=== PATIENT | female | born 1960 | race Caucasian/White ===

== ENCOUNTER 2019-02-12 14:50 | Emergency (ER) | payer OTHER, SELFPAY ==
[2019-02-12 15:15] VITALS: BP 136/81; PULSE 83; RESP 18; TEMP 36.4; O2SAT 97; BMI 37.1
[2019-02-12] MEDS: ONDANSETRON 4 MG/2 ML INJ IV ×2 (15:41→18:40)
[2019-02-12] MEDS: SODIUM CHLORIDE 0.9% 1,000 ML 1000 ML IV (15:41)
[2019-02-12 15:42] LABS: Add Manual Diff / Slide Review NO; Basophils Absolute Auto 0 /uL (0-100); Basophils Percent Auto 0.4 % (0-2); Eosinophils Absolute Auto 0 /uL (0-450); Eosinophils Percent Auto 0.3 % (2-4); Hematocrit 43.9 % (36-46); Hemoglobin 15.3 g/dL (12.0-16.0); Lymphocytes Absolute Auto 1700 /uL (1100-4500); Lymphocytes Percent Auto 15.4 % (25-40); Mean Corpuscular HGB Conc 34.8 % (30-36); Mean Corpuscular Hemoglobin 32.3 PG (26-34); Mean Corpuscular Volume 92.9 fL (80-100); Monocytes Absolute Auto 600 /uL (0-900); Monocytes Percent Auto 5.1 % (3-14); Neutrophils Absolute Auto 8600 /uL (1500-7000); Neutrophils Percent Auto 78.8 % (50-75); Platelet Count 168 X10^3/uL (150-400); Red Blood Cell Count 4.73 X10^6/uL (4.0-5.2); Red Cell Distribution Width 12.9 % (11.6-14.8); White Blood Cell Count 10.9 X10^3/uL (4.5-11.0)
--- NOTE | 2019-02-12 15:50 | ED_ITS ---
HPI - Abdominal Pain General Chief Complaint: Abdominal Pain Stated Complaint: lower abdominal area, nasea Time Seen by Provider: 02/12/19 15:36 Source: patient Mode of arrival: ambulatory Limitations: no limitations History of Present Illness HPI narrative: 58-year-old female here for evaluation of generalized abdominal pain and nausea and vomiting. She states that all her symptoms started this morning in been going on for less than 12 hours. Denied any fevers however generally does not feel very well. She states that it does cause abdominal pain when she urinates. Had 1 episode of diarrhea earlier today that was nonbloody and did not change her abdominal pain at all. She has had kidney stones in the past and states this feels somewhat like a kidney stone but not exactly. She also states she has had diverticulitis in the past but that was many years ago and does not remember if this is what it felt like. Has not tried anything for symptoms prior to arrival. Related Data Home Medications Medication Instructions Recorded Confirmed No Known Home Medications 02/12/19 02/12/19 Previous Rx's Medication Instructions Recorded ciprofloxacin HCl [Cipro] 500 mg PO BID 10 Days #20 tab 02/12/19 metronidazole [Flagyl] 500 mg PO TID 10 Days #30 tab 02/12/19 ondansetron 4 mg PO Q6H PRN #14 tab 02/12/19 Allergies Allergy/AdvReac Type Severity Reaction Status Date / Time No Known Drug Allergies Allergy Verified 02/12/19 15:15 Review of Systems Constitutional Denies fever(s) and Reports malaise Cardiovascular Denies chest pain and Denies dyspnea Respiratory Denies dyspnea Gastrointestinal Gastrointestinal: Reports abdominal pain, Reports diarrhea, Reports nausea and Denies vomiting Genitourinary Denies dysuria and Denies flank pain Musculoskeletal Denies myalgias and Denies arthralgias Integumentary/Breasts Denies lesions and Denies rash Neurologic Denies behavioral changes and Denies confusion Psychiatric Denies behavioral changes and Denies confusion Hematologic/Lymphatic Denies easy bleeding and Denies easy bruising [facility] Medical History History of diverticulitis (Acute) History of kidney stones (Acute) Social History Smoking Status: Never smoker Social History Smoking Status: Never smoker Exam Initial Vital Signs Initial Vital Signs: Vital Signs Temperature 97.6 F 02/12/19 15:15 Pulse Rate 83 02/12/19 15:15 Respiratory Rate 18 02/12/19 15:15 Blood Pressure 136/81 02/12/19 15:15 Pulse Oximetry 97 02/12/19 15:15 Const General: cooperative, healthy appearing, comfortable, well developed, well groomed and No acute distress Orientation: alert, awake and oriented x3 HENMT Head: normal to inspection and normocephalic Resp Effort & Inspection: normal respiratory effort Auscultation: clear to auscultation bilaterally Cardio Rate: regular rate Rhythm: regular rhythm GI Inspection: non-distended Palpation: No firm and tender (Generalized abdominal tenderness without rebound) Back/Spine/Pelvis Back: No CVA tenderness Skin Lesions: no lesions Rashes: no rashes Neuro General: alert, awake and oriented x3 Cognition: normal cognition Speech: speech normal Gait: normal gait Extrem General: normal to inspection, capillary refill normal and No edema Psych Appearance: grossly normal and well kempt Course Orders Ordered: ED Orders 02/12/19 15:35 Complete Blood Count AUTO DIFF Stat Comprehensive Metabolic Panel Stat Lipase Stat 02/12/19 16:17 Urine Culture Stat Urine Microscopic Stat 02/12/19 17:21 CT abdomen pelvis w con Stat Discontinued Medications Sodium Chloride (Normal Saline 0.9%) 1,000 mls @ 1,000 mls/hr IV BOLUS ONE Stop: 02/12/19 16:24 Last Infusion: 02/12/19 17:08 Dose: 0 mls/hr Admin: 02/12/19 15:41 Dose: 1,000 mls/hr Ondansetron HCl (Zofran) 4 mg IV NOW ONE Stop: 02/12/19 15:26 Last Admin: 02/12/19 15:41 Dose: 4 mg Vital Signs - 8 hr 02/12/19 15:15 02/12/19 17:51 Temperature 97.6 F Pulse Rate 83 83 Respiratory Rate 18 14 Blood Pressure 136/81 Blood Pressure [Right Arm] 151/78 H Pulse Oximetry 97 97 MDM - Abdominal Pain Lab Data Attestation: I reviewed the patient's lab results. Result diagrams: 02/12/19 15:35 02/12/19 15:35 Lab Results 02/12/19 02/12/19 02/12/19 Range/Units 15:35 15:35 15:35 WBC 10.9 (4.5-11.0) X10^3/uL RBC 4.73 (4.0-5.2) X10^6/uL Hgb 15.3 (12.0-16.0) g/dL Hct 43.9 (36-46) % MCV 92.9 (80-100) fL MCH 32.3 (26-34) PG MCHC 34.8 (30-36) % RDW 12.9 (11.6-14.8) % Plt Count 168 (150-400) X10^3/uL Neut % (Auto) 78.8 H (50-75) % Lymph % (Auto) 15.4 L (25-40) % Potter % (Auto) 5.1 (3-14) % Eos % (Auto) 0.3 L (2-4) % Baso % (Auto) 0.4 (0-2) % Neut # (Auto) 8600 H (9475-1713) /uL Lymph # (Auto) 1700 (7109-8956) /uL Potter # (Auto) 600 (0-900) /uL Eos # (Auto) 0 (0-450) /uL Baso # (Auto) 0 (0-100) /uL Sodium 139 (137-145) mmol/L Potassium 4.0 (3.4-5.1) mmol/L Chloride 103 (98-107) mmol/L Carbon Dioxide 24 (22-32) mmol/L BUN 15 (7-17) mg/dL Creatinine 0.70 (0.52-1.04) mg/dL Estimated GFR > 60.0 (>60) mL/min BUN/Creatinine Ratio 21.4 (6-22) Glucose 94 (80-110) mg/dL Calcium 9.6 (8.4-10.2) mg/dL Total Bilirubin 0.6 (0.2-1.3) mg/dL AST 49 H (14-36) IU/L ALT 90 H (9-52) IU/L Alkaline Phosphatase 65 (38-126) U/L Total Protein 7.7 (6.3-8.2) g/dL Albumin 4.5 (3.5-5.0) g/dL Globulin 3.2 (1.7-4.1) g/dL Albumin/Globulin Ratio 1.4 (1.0-2.8) Lipase 83 (23-300) U/L Urine RBC (0-5/HPF) Urine WBC (0-5/HPF) Ur Squamous Epith Cells (0-5/HPF) Urine Bacteria (None) Ur Culture Indicated? 02/12/19 Range/Units 16:17 WBC (4.5-11.0) X10^3/uL RBC (4.0-5.2) X10^6/uL Hgb (12.0-16.0) g/dL Hct (36-46) % MCV (80-100) fL MCH (26-34) PG MCHC (30-36) % RDW (11.6-14.8) % Plt Count (150-400) X10^3/uL Neut % (Auto) (50-75) % Lymph % (Auto) (25-40) % Potter % (Auto) (3-14) % Eos % (Auto) (2-4) % Baso % (Auto) (0-2) % Neut # (Auto) (3390-2431) /uL Lymph # (Auto) (0186-4341) /uL Potter # (Auto) (0-900) /uL Eos # (Auto) (0-450) /uL Baso # (Auto) (0-100) /uL Sodium (137-145) mmol/L Potassium (3.4-5.1) mmol/L Chloride (98-107) mmol/L Carbon Dioxide (22-32) mmol/L BUN (7-17) mg/dL Creatinine (0.52-1.04) mg/dL Estimated GFR (>60) mL/min BUN/Creatinine Ratio (6-22) Glucose (80-110) mg/dL Calcium (8.4-10.2) mg/dL Total Bilirubin (0.2-1.3) mg/dL AST (14-36) IU/L ALT (9-52) IU/L Alkaline Phosphatase (38-126) U/L Total Protein (6.3-8.2) g/dL Albumin (3.5-5.0) g/dL Globulin (1.7-4.1) g/dL Albumin/Globulin Ratio (1.0-2.8) Lipase (23-300) U/L Urine RBC 0-1/hpf (0-5/HPF) Urine WBC 0-1/hpf (0-5/HPF) Ur Squamous Epith Cells 0-1 /hpf (0-5/HPF) Urine Bacteria None seen (None) Ur Culture Indicated? Specimen cultured Point of care testing: Urine Dip Bedside Urine Glucose Negative Bedside Urine Bilirubin - Negative Bedside Urine Ketone - Negative Urine Specific [place] 1.020 Bedside Urine Occult Blood - Negative Bedside Urine pH 5.5 Bedside Urine Protein - Negative Bedside Urine Urobilinogen - Negative Bedside Urine Nitrite - Negative Bedside Urine Leukocytes +/- 15 Esterase MDM Narrative Medical decision making narrative: Patient has a benign abdominal exam. The CT scan is consistent with diverticulitis which does fit the symptoms here in the ER. She has no signs urinary tract infections. No sign of renal stones. She is having some nausea but is tolerating oral intake. No indication for surgical intervention. Will send home with antibiotics and nausea medication. She was given return precautions and follow-up instructions. She expressed underst anding and agreement plan. Discharge Plan Departure Patient Disposition: Home Clinical Impression: Diverticulitis Instructions: Diverticulitis Activity Restrictions/Additional Instructions: Take all the medications as directed. Increase your fluid intake. Contact your primary care provider for follow-up. Return to the emergency department for any new or worsening symptoms Prescriptions: New metronidazole [Flagyl] 500 mg tablet 500 mg PO TID 10 Days Qty: 30 RF: 0 ciprofloxacin HCl [Cipro] 500 mg tablet 500 mg PO BID 10 Days Qty: 20 RF: 0 ondansetron 4 mg tablet,disintegrating 4 mg PO Q6H PRN (Reason: nausea and vomiting) Qty: 14 RF: 0 No Action No Known Home Medications RF: 0
[2019-02-12 15:53] LABS: Alanine Aminotransferase 90 IU/L (9-52); Albumin 4.5 g/dL (3.5-5.0); Albumin Globulin Ratio 1.4 (1.0-2.8); Alkaline Phosphatase 65 U/L (38-126); Aspartate Aminotransferase 49 IU/L (14-36); BUN Creatinine Ratio 21.4 (6-22); Bilirubin Total 0.6 mg/dL (0.2-1.3); Blood Urea Nitrogen 15 mg/dL (7-17); Calcium 9.6 mg/dL (8.4-10.2); Carbon Dioxide 24 mmol/L (22-32); Chloride 103 mmol/L (98-107); Estimated Glomerular Filt Rate > 60.0 mL/min (>60); Globulin 3.2 g/dL (1.7-4.1); Glucose 94 mg/dL (80-110); HEMOLYSIS < 15 (0-50); Sodium 139 mmol/L (137-145); Total Protein 7.7 g/dL (6.3-8.2)
[2019-02-12 16:04] LABS: Lipase 83 U/L (23-300)
[2019-02-12 16:26] LABS: Bacteria Urine None Seen
[2019-02-12 16:34] LABS: Culture Indicated Urine Specimen Cultured; RBC Urine 0-1/HPF (0-5/HPF); Squamous Epithelial Cell Urine 0-1 /HPF (0-5/HPF); WBC Urine 0-1/HPF (0-5/HPF)
--- NOTE | 2019-02-12 17:21 | DI.CT.S_ITS ---
PROCEDURE: CT ABDOMEN PELVIS W CON INDICATIONS: Generalized abdominal pain TECHNIQUE: After the administration of intravenous contrast, 5 mm thick sections acquired from the diaphragm to the symphysis. 5 mm coronal and sagittal reformats were acquired. For radiation dose reduction, the following was used: automated exposure control, adjustment of mA and/or kV according to patient size. COMPARISON: None. FINDINGS: Image quality: Excellent. ABDOMEN: Lung bases: Lung bases are clear. Heart size is normal. Solid organs: Liver is normal in size and enhancement. Gallbladder appears normal. Biliary system is non dilated. Pancreas enhances normally. Spleen is normal in size and enhancement. No adrenal nodules. Kidneys demonstrate normal size and enhancement, without hydronephrosis. Peritoneum and bowel: Bowel loops demonstrate normal wall thickness and caliber. No free fluid or air. Nodes and vessels: No retroperitoneal or mesenteric adenopathy by size criteria. Aorta and inferior vena cava are normal in size. Miscellaneous: No ventral hernias. PELVIS: Genitourinary: Bladder wall thickness is normal. Miscellaneous: No inguinal hernias or adenopathy. There is moderate sigmoid diverticulosis at the left lower quadrant involving the distal descending colon and the proximal sigmoid colon, and also superimposed acute diverticulitis at this time in that area as indicated by mesenteric and pericolonic edema. No peridiverticular abscess is associated. Bones: No suspicious bony lesions. No vertebral body compression fractures. IMPRESSION: Definite mild to moderate acute diverticulitis without peridiverticular abscess left lower quadrant. This is in the setting of mild to moderate diverticulosis at the distal descending and proximal sigmoid colon. No additional abnormality elsewhere is found. Dictated by: Federico Ignacio M.D. on 02/12/2019 at 17:56 Approved by: Federico Ignacio M.D. on 02/12/2019 at 17:59
[2019-02-12 17:51] VITALS: BP 151/78; PULSE 83; RESP 14; O2SAT 97
[2019-02-12 18:33] VITALS: BP 157/86; PULSE 66; RESP 14; O2SAT 98
[2019-02-12] MEDS: ACETAMINOPHEN 325 MG TABLET 650 MG PO (18:46)
== END 2019-02-12 18:47 | disposition home or self-care (01) ==
PROVIDERS: Emergency Provider Emergency Medicine
DX: K57.92 Diverticulitis of intestine, part unspecified, without perforation or abscess without bleeding (principal)
CPT/HCPCS: 36591; 74177; 80053; 81003; 81015; 83690; 85025; 87086; 96361; 96374; 96375; 99283; 99285; J2405; Q9967